=== PATIENT | male | born 1990 | race Caucasian/White ===

== ENCOUNTER 2022-06-09 20:28 | Emergency (ER) | payer MEDICAID ==
[~2022-06-09] VITALS: Ht 157.5 cm; Wt 99.8 kg
[2022-06-09 20:29] VITALS: BP 150/90
--- NOTE | 2022-06-09 20:29 | NUR ---
[facility] TO BED #6
--- NOTE | 2022-06-09 20:29 | NUR ---
PT BROUGHT TO BED 6 VIA [facility]CEHSTER
[2022-06-09] MEDS ORDERED: NACL 0.9% 1,000 ML IV ONE (20:45)
[2022-06-09] MEDS ORDERED: LORazepam 2 MG/ML VIAL IVP ONE (20:45)
[2022-06-09 21:01] LABS: BASOPHILS % (AUTO) 0.6 % (0.0-2.0); EOSINOPHILS % (AUTO) 0.2 % (0.0-4.0); HEMATOCRIT 38.5 % (36-52); HEMOGLOBIN 13.2 g/dL (12.0-18.0); LYMPHOCYTES # (AUTO) 0.8 K/uL (2.0-11.5); LYMPHOCYTES % (AUTO) 10.4 % (20.5-51.1); MEAN CORPUSCULAR HEMOGLOBIN 33 pg (27-31); MEAN CORPUSCULAR HGB CONC 34 g/dL (33-37); MEAN CORPUSCULAR VOLUME 96.6 fL (80-94); MONOCYTES # (AUTO) 0.4 K/uL (0.8-1.0); MONOCYTES % (AUTO) 5.1 % (1.7-9.3); NEUTROPHILS # (AUTO) 6.1 K/uL (1.8-7.7); NEUTROPHILS % (AUTO) 83.7 % (42.2-75.2); PLATELET COUNT (AUTO) 133 K/uL (140-450); RED BLOOD CELL COUNT(AUTO) 3.99 MIL/uL (4.20-6.10); RED CELL DISTRIBUTION WIDTH 14.5 % (11.6-13.7); WHITE BLOOD COUNT (AUTO) 7.3 K/uL (4.8-10.8)
[2022-06-09 21:25] LABS: ALBUMIN 3.8 g/dL (3.4-5.0); ANION GAP 15.2 (8-16); ASPARTATE AMINOTRANSFERASE 153 U/L (15-37); CARBON DIOXIDE 28.1 mmol/L (21-32); CHLORIDE 92 mmol/L (98-107); CREATININE 1.1 mg/dL (0.6-1.3); GFR ARICAN-AMERICAN 100 mL/min (>90); GLUCOSE 116 mg/dL (74-106); SODIUM SERUM 133 mmol/L (136-145); TOTAL BILIRUBIN 1.3 mg/dL (0.0-1.0); UREA NITROGEN, BLOOD 7 mg/dL (7-18)
[2022-06-09 21:27] LABS: POTASSIUM 2.3 mmol/L (3.5-5.1)
[2022-06-09] MEDS ORDERED: POTASSIUM CHLORIDE 10 MEQ TABER PO ONE ×2 (21:30)
[2022-06-09 21:38] LABS: SALICYLATE < 2.8 mg/dL (2.8-20.0)
[2022-06-09 21:39] LABS: ACETAMINOPHEN < 0.5 ug/ml (10-30)
[2022-06-09 22:00] LABS: BILIRUBIN,URINE 2+ (NEGATIVE); BLOOD, URINE 3+ (NEGATIVE); LEUKOCYTE ESTERASE ,URINE NEGATIVE (NEGATIVE); NITRITE, URINE NEGATIVE (NEGATIVE); PH,URINE 5.5 (5.0-9.0); UGLUCOSE NEGATIVE (NEGATIVE)
[2022-06-09 22:21] LABS: BARBITURATE, URINE NEGATIVE ng/ml (NEG <=200); BENZODIAZEPINE, URINE POSITIVE ng/mL (NEG <=200); CANNABINOID, URINE POSITIVE ng/mL (NEG <=50); COCAINE, URINE NEGATIVE ng/mL (NEG <=300); OPIATE, URINE NEGATIVE ng/mL (NEG <=2000); PHENCYCLIDINE SCREEN,URINE NEGATIVE ng/mL (NEG <=25)
[2022-06-09 22:26] LABS: APPEARANCE,URINE HAZY (CLEAR); COLOR,URINE YELLOW (YELLOW)
[2022-06-09 22:43] LABS: RBC,URINE 0-5 /HPF (0-5)
[2022-06-09 22:45] LABS: HYALINE CASTS, URINE 0-10 /LPF (None Seen)
[2022-06-09] MEDS ORDERED: levETIRAcetam 100 MG/ML VIAL IV ONE (23:31)
[2022-06-10 00:15] LABS: ALBUMIN 3.7 g/dL (3.4-5.0); CREATININE 0.9 mg/dL (0.6-1.3); TOTAL BILIRUBIN 1.5 mg/dL (0.0-1.0)
--- NOTE | 2022-06-10 00:16 | NUR ---
[id number] reported to want to leave [facility]. educated on the dangers of leaving without proper clearance. from md. Was educated on his most recent lab results being a potassium level of 2.3 and went over the possible cardiac complications. Pt agreed to stay in interest of us providing him an air bnb or an uber to get back to his sober living facility. Pt allowed us to give meds as ordered but still shows an impatience in his affect. Pt refuses to stay on monitor continuously but agrees to intermittent monitoring
[2022-06-10 00:29] LABS: ANION GAP 8.6 (8-16); CARBON DIOXIDE 28.2 mmol/L (21-32)
[2022-06-10 00:30] LABS: POTASSIUM 2.8 mmol/L (3.5-5.1)
[2022-06-10 01:02] VITALS: BP 129/89
--- NOTE | 2022-06-10 01:02 | NUR ---
Patient discharged with v/s stable. Written and verbal after care instructions given and explained. Patient verbalized understanding. Ambulatory with steady gait. All questions addressed prior to discharge. Advised to follow up with PMD.
--- NOTE | 2022-06-10 01:09 | NUR ---
UBER ORDERED, ARRIVES IN 7MINS, ISABELLE SILVA. PT MADE AWARE, IS WAITING IN FRONT OF HOSPITAL FOR [facility] [employer] [facility] [employer].
[2022-06-10] MEDS ORDERED: levETIRAcetam 500 MG in NACL 0.9% 100 ML IV SCH (09:00)
== END 2022-06-10 01:02 | disposition home or self-care (01) ==
LOC: MED 20:28
DX: R56.9 Unspecified convulsions (principal); F10.239 Alcohol dependence with withdrawal, unspecified; Y90.9 Presence of alcohol in blood, level not specified; E87.6 Hypokalemia
CPT/HCPCS: 36415; 70450; 80053; 80305; 81001; 84484; 85025; 87086; 93005; 96361; 96374; 96375; 99285; G0480; G0482; J1953; J2060; J7030